=== PATIENT | female | born 1950 | race Caucasian/White ===

== ENCOUNTER → 2019-09-19 | Outpatient (CLI) | payer BC ==
--- NOTE | 2019-09-19 12:43 | Diagnostic Imaging Report ---
EXAM: HAND TWO VIEWS BILATERAL DATE: 09/19/2019 11:55 AM INDICATION: Hand arthritis COMPARISON: None FINDINGS: There is no evidence for acute fracture or dislocation. No focal lytic or blastic abnormality is identified. There are mild degenerative changes involving the distal greater than proximal interphalangeal joints with joint space narrowing. Mild/moderate degenerative changes noted of the left greater than right first MTPs. No osseous erosive process is identified. The surrounding soft tissues are unremarkable without evidence for radiopaque foreign body. IMPRESSION: No acute radiographic abnormality identified within the bilateral hands. Osteoarthritic changes as above. Signed by: Dr. Sung Mir MD on 09/19/2019 12:40 PM
== END ==
LOC: RAD 11:38
PROVIDERS: ATTEND Internal Medicine
DX: M13.842 Other specified arthritis, left hand (principal); M13.841 Other specified arthritis, right hand

== ENCOUNTER → 2021-05-07 | Outpatient (CLI) | payer BC | LOC: RAD 14:10 | PROVIDERS: ATTEND Internal Medicine | DX: J15.9 Unspecified bacterial pneumonia (principal) | CPT/HCPCS: 71046 ==

== ENCOUNTER → 2025-04-04 | Outpatient (REF) | payer BC, MEDICARE | LOC: RAD 12:52 | PROVIDERS: ATTEND Internal Medicine | DX: I50.32 Chronic diastolic (congestive) heart failure (principal); R91.1 Solitary pulmonary nodule | CPT/HCPCS: 71046 ==